=== PATIENT | male | born 1960 | race Hispanic/Latino ===

== ENCOUNTER 2017-03-17 00:23 | Inpatient (IN) | payer SELFPAY ==
--- NOTE | 2017-03-16 11:26 | DIREP ---
PROCEDURE:CHEST 2 VIEWS COMPARISON:[facility], CT, CTA CHEST, 04/17/2016, 01:36 PM. [facility], CR, XRAY CHEST SINGLE VW, 04/17/2016, 10:33 AM. INDICATIONS:PRE OP HEART CATH, ABNORMAL MOISES FINDINGS: LUNGS/PLEURA:No significant pulmonary parenchymal abnormalities or pleural effusion. CARDIAC:Normal cardiac silhouette and normal pulmonary vascularity. MEDIASTINUM:Normal. BONES:Flowing anterior thoracic spondylosis. OTHER:No additional findings. CONCLUSION:No acute cardiopulmonary process or significant change. Dictated by: Johanna Gaines MD on 03/16/2017 at 11:24 AM
[~2017-03-17] VITALS: Ht 172.7 cm; Wt 140.2 kg
[2017-03-17] VITALS (45 sets, daily range): BP systolic 115–244; BP diastolic 47–127
[~2017-03-17 00:23] MED LIST: ASPI-655 PO; ATOR10TA PO; CLOP75TA52 PO; FAMO-75 PO; FLUT9.9S NS; HYDR-922 PO; LISI10TA2 PO; MELO7.5T31 PO; METO25TA2 PO
[2017-03-17] MEDS ORDERED: CALAN ONE (06:40)
[2017-03-17] MEDS ORDERED: HEPARIN ONE (06:40)
[2017-03-17] MEDS ORDERED: NS 1000ML 1,000 ML ONE (06:40)
[2017-03-17] MEDS ORDERED: SUBLIMAZE ONE (06:41)
[2017-03-17] MEDS ORDERED: VERSED ONE (06:41)
[2017-03-17] MEDS ORDERED: XYLOCAINE ONE (06:41)
[2017-03-17] MEDS ORDERED: NITROGLYCERIN 25MG/D5W 250ML 250 ML IV ONE (06:41)
[2017-03-17] MEDS ORDERED: BENADRYL PO ONE (08:00)
[2017-03-17] MEDS ORDERED: NS FLUSH ONE (10:09)
[2017-03-17] MEDS ORDERED: BRILINTA ONE (10:43)
[2017-03-17] MEDS ORDERED: TUMS ONE (10:43)
[2017-03-17] MEDS ORDERED: ASPIRIN ONE (10:43)
[2017-03-17] MEDS ORDERED: SODIUM CHLORIDE 50 ML IV ONE ×3 (10:52→11:01)
[2017-03-17] MEDS ORDERED: ANGIOMAX IV ONE ×3 (10:52→11:00)
[2017-03-17] MEDS ORDERED: AMBIEN PO PRN (11:30)
[2017-03-17] MEDS ORDERED: NORCO 10MG PO PRN (11:30)
[2017-03-17] MEDS ORDERED: NORCO 5MG PO PRN (11:30)
--- NOTE | 2017-03-17 11:35 | NUR ---
PATIENT UP TO UNIT VIA STRETCHER ON PORTABLE AED/TELEMONITOR AND O2 ON AT 2L VIA NASAL CANNULA. PATIENT AWAKES TO VERBAL STIMULI, FOLLOWS COMMANDS. SPEECH CLEAR AND COHERENT. PATIENT ORIENTED X3. PATIENT TRANSFERRED INTO ICU BED WITH 3 PERSON ASSIST. REPORT RECEIVED FROM Quang THOMPSON RN. TR BAND TO RIGHT WRIST. NO BLEEDING OR HEMATOMA NOTED. ANGIOMAX INFUSING AT 49ML/HR AND NS AT 100CC/HR. IV ACCESS NO LONG PATENT. NEW IV ACCESS OBTAINED TO LEFT HAND WITH 20 GA USING ASEPTIC TECH. PATIENT TOLERATED WELL. BAND AID APPLIED TO PREVIOUS ACCESS TO LEFT FA. NO BLEEDING NOTED AT THIS TIME. PATIENT ORIENTED TO ROOM, BED, AND CALL LIGHT. PATIENT AND FAMILY AT BEDSIDE REINSTRUCTED TO NOT PULL OR PUSH WITH RIGHT WRIST AND RO REPORT ANY BLEEDING OR UNUSUAL BRUISING TO NURSE IMMEDIATELY. PATIENT/FAMILY INSTRUCTED ON PURPOSE AND S/E OF ANGIOMAX. PATIENT AND FAMILY VOICED UNDERSTANDING. CALL LIGHT WITHIN EASY REACH.
[2017-03-17] MEDS: ZESTRIL PO SCH (12:30)
--- NOTE | 2017-03-17 12:30 | NUR ---
PATIENT ASSISTED TO BSC. GAIT STEADY. PATIENT C/O CHRONIC KNEE PAIN. NO DISTRESS NOTED. PATIENT HAD LARGE LOOSE BM. PATIENT ASSISTED WITH CLEANSING, AND NEW GOWN AND LINENS CHANGED.
--- NOTE | 2017-03-17 12:54 | CCRH ---
DATE OF SERVICE: 03/17/2017 PROCEDURES PERFORMED: 1. Left heart catheterization via right radial artery access. 2. Selective coronary angiography, left and right. 3. Left ventricular end-diastolic pressure measurement. 4. Left ventriculography. 5. Angioplasty to the in-stent restenosis at the ostial LAD using scoring balloon angioplasty. 6. Angioplasty of the mid circumflex artery, using a drug-eluting stent with primary stenting. 7. Bivalirudin infusion. COMPLICATIONS: None. BLOOD LOSS: Minimal, less than 20 mL. INDICATIONS AND PREOPERATIVE DIAGNOSES: 1. Abnormal stress test dated 03/06/2017 with anterior wall reversible defect and LV dysfunction with EF of 45%. 2. Established history of coronary artery disease requiring angioplasty of a totally occluded LAD on 04/17/2016 with a drug-eluting stent. 3. Progressive symptoms of angina pectoris class 2. 4. Multiple risk factors for coronary artery disease including hypertension, hyperlipidemia, morbid obesity and history of smoking. HISTORY OF PRESENT ILLNESS: The patient is a 56-year-old gentleman who presented with non-ST elevation [place], on April 2016 requiring angioplasty of a totally occluded LAD. Successful angioplasty was performed with excellent results. The patient was on medical treatment. He quit smoking and started following therapeutic lifestyle modifications. Over the last couple of weeks, he developed angina symptoms, class 2. Stress test performed on 03/06/2017 showed anterior wall reversible defect, symptoms progressed. The anterior wall perfusion defect warranted further evaluation of the LAD. DESCRIPTION OF PROCEDURE: The patient was brought into the [facility] today in a fasting condition as an outpatient, he signed proper consent. Risks and benefits were explained. All questions were answered. Lab results were reviewed and allergies verified. Right wrist area was prepped and draped and sterilized, 1% lidocaine was used for local analgesia. A 6-Czech sheath was inserted in the right radial artery without difficulty followed by advancing a 6-Czech sheath in the right radial artery. A 6-Czech Gladwin catheter was utilized to engage the right coronary artery, a JL4 was the catheter of choice to engage the left main for selective left coronary angiography. This was followed by advancing a pigtail catheter into the LV cavity for LVEDP measurement and power injection LV gram in the [place] projection. Careful examination of coronary angiography showed a significant in-stent restenosis at the ostium of the LAD previously deployed stent. There was also a de gustabo lesion in the mid circumflex artery estimated around 70-80% tubular long lesion. At that point, decision was made to discuss the findings with the patient, offered coronary artery bypass procedure, which was declined by the patient and he requested to proceed with angioplasty using percutaneous approach. I have explained all the risks and benefits, cons and pros of the both approaches, the patient agreed on percutaneous intervention and repeating this coronary study in 3 months to reevaluate. At that point, bivalirudin was given for anticoagulation of choice. The patient was in full agreement on the plan and hence an XBU-3 guiding catheter was advanced over the guidewire into the ascending aorta to engage the left main and happened easily without complications. I managed to advance a ChoICE PT wire across the in-stent restenotic lesion in the ostial LAD without difficulty. A run-through wire was advanced into the circumflex artery without difficulty. There were 2 wires in the coronary arteries. Appropriate location was confirmed. The ostial LAD in-stent restenotic lesion which was estimated around 80-85% was treated successfully and reduced to less than 20% using 3.0 x 6 scoring balloon AngioSculpt inflated twice carefully and slowly up to 8 nominal pressures. After angioplasty confirmation of no complication was made. The circumflex artery received angioplasty using 3.0 x 23 Xience Alpine drug-eluting stent deployed carefully over the run-through wire without difficulty to 12 atmospheric pressure and post-dilated to 15 atmospheric pressure with 0% residual stenosis, TIMI3 flow and no complications. The patient reported chest pain upon scoring balloon angioplasty and stent deployment in circumflex artery indicating the clinical significance of both lesions. The patient tolerated the procedure well, had no further complications, chest pain free when he left the medical laboratory technical officer. TR band was applied for hemostasis at the right radial artery access site. I have explained all the findings to the patient in angiographic images and the details of angioplasty. The patient left the Clo[facility] Room Attendant in a stable condition. HEMODYNAMICS: 1. Opening pressure of 122/61, mean of 90. Closing pressure 125/72, mean of 94 mmHg. 2. LVEDP was around 15 mmHg. 3. LV gram showed an ejection fraction of around 55%. There is mild anterior wall hypokinesia. 4. Ascending aorta was normal in size without apparent pathology. 5. A gradient of less than 3 mm across the aortic valve was noted, insignificant. ANGIOGRAPHIC FINDINGS: 1. The right coronary artery is a dominant vessel, normal in size. There is a mild disease proximally around 30%. The rest of the vessel is free of disease, bifurcates distally into a dominant, mildly diseased RPDA and PLV branches. No obstructive lesion in the RCA territory. Multiple small acute marginal branches were noted without obstructive disease. 2. Left main is free of disease vessel. Careful examination showed that the left main distal portion is minimally diseased around 20%. The rest of the left main is free of disease. The vessel is calcified mildly. 3. LAD showed a significant in-stent restenosis at the ostium around 80%. The rest of the stent is patent. There is a moderate disease in the midsegment around 40% nonobstructive. The diagonal branch of the LAD has mild ostial disease. The vessel is tortuous, medium in size, otherwise free of disease except for the ostial lesion. 4. Circumflex artery is a large size vessel, nondominant. The proximal part showed mild disease. The midsegment showed a tubular long lesion around 70-80% in severity concentric. The obtuse marginal branches are medium sized tortuous vessels, free of disease. The circumflex artery is nondominant. INTERVENTION: After contemplating the surgical options for a bypass versus staged angioplasty and reexamination in 3 months, the patient decided to proceed with angioplasty using percutaneous approach. Therefore, bivalirudin was started for anticoagulation. A ChoICE PT wire engaged the LAD without difficulty and a run-through wire across the circumflex artery, both advanced across a guiding catheter of XBU-3 guiding catheter. The ostial LAD lesion was treated with 3.0 x 6 scoring balloon x 2 inflations: The circumflex artery lesion was reduced to 0% residual stenosis using 3.0 x 23 Xience Alpine drug-eluting stent. IMPRESSION: 1. Successful angioplasty of the critical in-stent restenotic lesion and ostial LAD using scoring balloon angioplasty sparing the left main. 2. Successful angioplasty of a significant mid circumflex artery lesion using primary stenting with drug eluting stent. 3. Xbcq-qq-xgnskytw RCA disease, large dominant vessel. 4. The left main itself was spared from disease other than 20% distal lesion. 5. Aqtb-oo-wbgeoolh first diagonal branch disease. 6. Preserved EF around 55% with normal LVEDP around 50 mmHg. 7. The patient reported chest pain upon balloon inflation and stent inflation in both vessels indicating the clinical significance of the lesion. 8. This angioplasty was indicated by multiple risk factors for CAD, ongoing angina symptoms, and history of abnormal stress test showing anterior wall perfusion defect performed on 03/06/2017. RECOMMENDATIONS: 1. The patient will be admitted to the ICU to manage and evaluate for any recoil or any complication related to balloon angioplasty of the proximal ostial LAD. 2. Dual antiplatelet therapy. I will switch the patient to Brilinta at this time. 3. Optimize medical management of TR band. 4. Secondary prevention of coronary artery disease. 5. Check lipid panel and optimize blood pressure control. 6. Therapeutic lifestyle modifications. Aileen Munson MD DR: MIREYA/ciarra JOB# [id number]
--- NOTE | 2017-03-17 12:55 | NUR ---
ANGIOMAX OFF AT THIS TIME.
[2017-03-17] MEDS: NS 1000ML 1,000 ML IV SCH ×2 (13:15→21:02)
--- NOTE | 2017-03-17 13:15 | NUR ---
PAIN PRN HYDROCODONE 5/325MG GIVEN ORDERED FOR PAIN TO JORDANA KNEES. SEE EMAR. PATIENT LEFT LAYING IN BED WITH CALL LIGHT WITHIN EASY REACH. NO OTHER NEEDS VOCIED AT THIS TIME.
--- NOTE | 2017-03-17 15:00 | NUR ---
TR BAND 2ML OF AIR REMOVED NO BLEEDING NOTED, NO HEMATOMA. PULSE 2+, CAP REFILL <3SEC. EXT WARMTH AND COLOR EQUAL BILATERALLY.
--- NOTE | 2017-03-17 15:15 | NUR ---
TR BAND 2ML OF AIR REMOVED NO BLEEDING NOTED, NO HEMATOMA. PULSE 2+, CAP REFILL <3SEC. EXT WARMTH AND COLOR EQUAL BILATERALLY.
--- NOTE | 2017-03-17 15:30 | NUR ---
TR BAND 2ML OF AIR REMOVED NO BLEEDING NOTED, NO HEMATOMA. PULSE 2+, CAP REFILL <3SEC. EXT WARMTH AND COLOR EQUAL BILATERALLY.
--- NOTE | 2017-03-17 15:45 | NUR ---
TR BAND 2ML OF AIR REMOVED NO BLEEDING NOTED, NO HEMATOMA. PULSE 2+, CAP REFILL <3SEC. EXT WARMTH AND COLOR EQUAL BILATERALLY.
--- NOTE | 2017-03-17 16:00 | NUR ---
TR BAND 2ML OF AIR REMOVED NO BLEEDING NOTED, NO HEMATOMA. PULSE 2+, CAP REFILL <3SEC. EXT WARMTH AND COLOR EQUAL BILATERALLY.
--- NOTE | 2017-03-17 16:15 | NUR ---
TR BAND 2ML OF AIR REMOVED NO BLEEDING NOTED, NO HEMATOMA. PULSE 2+, CAP REFILL <3SEC. EXT WARMTH AND COLOR EQUAL BILATERALLY.
--- NOTE | 2017-03-17 16:30 | NUR ---
TR BAND 2ML OF AIR REMOVED NO BLEEDING NOTED, NO HEMATOMA. TR BAND REMOVED, SITE CLEANSED WITH CHLORAPREP AND PAT DRY WITH GAUZE, COVERED WITH GAUZE AND TEGADERM. PULSE 2+, CAP REFILL <3SEC. EXT WARMTH AND COLOR EQUAL BILATERALLY.
--- NOTE | 2017-03-17 18:00 | NUR ---
DRESSING TO RIGHT WRIST C/D/I. PATIENT DENIED ANY NEEDS AT THIS TIME.
--- NOTE | 2017-03-17 18:45 | NUR ---
RECEIVED REPORT, ASSUMED PT CARE
--- NOTE | 2017-03-17 19:00 | NUR ---
PT C/O BACK PAIN NORCO ADMINISTERED PER ORDERS
[2017-03-17] MEDS ORDERED: LIPITOR PO SCH (21:00)
[2017-03-17] MEDS: PEPCID PO SCH (21:02)
[2017-03-17] MEDS: BRILINTA PO SCH (21:02)
[2017-03-17] MEDS ORDERED: BENADRYL PO STA (21:59)
--- NOTE | 2017-03-17 22:30 | NUR ---
PT PLACED ON C-PAP BY SOY RT
[2017-03-18] VITALS (35 sets, daily range): BP systolic 114–176; BP diastolic 40–93
--- NOTE | 2017-03-18 05:00 | NUR ---
LAB AT BEDSIDE
[2017-03-18 05:22] LABS: BASOPHIL % 0.4 % (0.0-0.2); EOSINOPHIL # 0.7 10^3/uL (0.0-0.2); EOSINOPHIL % 9.2 % (0.0-5.0); HEMOGLOBIN 12.1 g/dL (13.9-16.3); LYMPHOCYTES # 1.7 10^3/uL (1.0-4.8); LYMPHOCYTES % 23.8 % (24.0-44.0); MEAN CELL HGB 31.5 pg (26-34); MEAN CELL HGB CONCENTRATION 32.6 g/dL (33-37); MEAN CORP VOLUME 96.6 fL (78-100); MEAN PLATELET VOLUME 9.5 fL (7.8-11.0); MONOCYTES # 0.8 10^3/uL (0.3-0.8); MONOCYTES % 11.5 % (5.0-12.0); NEUTROPHIL # 3.9 10^3/uL (1.8-7.7); NEUTROPHILS % 54.7 % (41.0-85.0); RED CELL DISTRIBUTION WIDTH 13.4 % (11.5-14.5); WHITE BLOOD CELL 7.1 10^3/uL (4.5-11.0)
[2017-03-18 05:41] LABS: CALCIUM 8.8 mg/dL (8.4-10.5); CARBON DIOXIDE 25.5 mmol/L (20.0-32)
--- NOTE | 2017-03-18 06:45 | NUR ---
REPORT RECEIVED REPORT FROM Ubooly.
--- NOTE | 2017-03-18 07:00 | NUR ---
ASSESSMENT ASSESSMENT COMPLETE; SEE FLOW SHEET. DENIES NEEDS AT THIS TIME. BED IS LOW AND LOCKED. SIDE RAILS UP X2. CALL LIGHT IN REACH.
--- NOTE | 2017-03-18 08:08 | NUR ---
ROUNDS DR ORTIZ AT BEDSIDE; ORDERS TO DISCHARGE HOME AND FOLLOW UP IN ONE MONTH.
[2017-03-18] MEDS ORDERED: FLONASE NS SCH (09:00)
[2017-03-18] MEDS ORDERED: PLAVIX PO SCH (09:00)
[2017-03-18] MEDS ORDERED: ASPIRIN EC PO SCH (09:00)
--- NOTE | 2017-03-18 09:09 | NUR ---
IV CATHETER IV CATHETER DISCONTINUED; TIP INTACT; COTTON AND COBAND PLACED OVER SITE; INSTRUCTED TO PLACE BANDAIDE OVER SITE IN 15 MINUTES. VERBALIZED UNDERSTANDING.
--- NOTE | 2017-03-18 09:10 | NUR ---
DISCHARGE DISCHARGE INSTRUCTIONS GIVEN WRITTEN AND VERBALLY. ANSWERED QUESTIONS AND VERBALIZED UNDERSTANDING. INSTRUCTED TO CALL TODAY AND MAKE A FOLLOW UP APPOINTMENT WITH DR ORTIZ. PATIENT REQUEST MEDICATIONS BEFORE LEAVING HOSPITAL.
--- NOTE | 2017-03-18 09:20 | NUR ---
Ice Sculptor Pt seen in room by this nurse. Assessed right radial site. Dressing dry and intact. Instructions given on removal of dressing and care of site at home. Patient verbalized understanding. Denies pain at site. No bleeding, or swelling noted at site. Denies any further questions at this time .
[2017-03-18] MEDS: BRILINTA PO SCH (09:22)
[2017-03-18] MEDS: ZESTRIL PO SCH (09:23)
[2017-03-18] MEDS: PEPCID PO SCH (09:23)
[2017-03-18] MEDS: NS 1000ML 1,000 ML IV SCH (09:24)
--- NOTE | 2017-03-18 09:26 | NUR ---
MEDICATIONS MEDICATIONS PROVIDED; SEE EMAR. INSTRUCTED WOULD NEED TO STAY FOR 30 MINUTES AFTER TAKING MEDICATIONS. VERBALIZED UNDERSTANDING.
[2017-03-18] MEDS ORDERED: TICA90TA PO (09:58)
--- NOTE | 2017-03-18 10:00 | NUR ---
DISMISSED REFUSED WHEELCHAIR; DISMISSED AMBULATORY IN STABLE CONDITION.
--- NOTE | 2017-03-18 10:09 | PRM.DC ---
Discharge Summary Date of Arrival on Unit: Mar 16, 2017 Reason for Visit: Coronary artery disease, peripheral artery disease Patient History: Diabetes mellitus 32 MOTHER 19 CHILD (STEROIDAL DIABETES) FH: coronary artery disease 33 FATHER FH: cystic fibrosis 19 CHILD FH: liver disease 19 CHILD Hypertension 32 MOTHER 33 FATHER No known health problems G8 BROTHER G8 BROTHER G8 SISTER G8 SISTER G8 SISTER 19 CHILD 19 CHILD No Family History of: Alzheimer's disease Asthma Cerebrovascular disorder Chronic obstructive pulmonary disease Congestive heart failure Diabetes insipidus Parkinson's disease History Present Illness: General: Alert, Oriented X3, Cooperative, No acute distress HEENT: Atraumatic Neck: Supple Heart: Regular rate Extremities: No cyanosis Skin: No breakdown Neuro: Normal gait, Normal speech, Normal tone Psych/Mental Status: Mental status NL, Mood NL Scheduled Aspirin (Aspirin Ec), 2 TAB PO DAILY, (Reported) Atorvastatin 10MG (Lipitor 10MG), 1 TAB PO HS, (Reported) Famotidine (Pepcid), 1 TAB PO BID, (Reported) Fluticasone Propionate (Flonase Allergy Relief), 9.9 ML NS DAILY, (Reported) Lisinopril (Lisinopril), 1 TAB PO DAILY, (Reported) Scheduled PRN Hydrocodone Bit/Acetaminophen ([place] 10-325 Tablet), 1 TAB PO BID PRN for PAIN, (Reported) Discontinued Medications Clopidogrel Bisulfate (Plavix), 1 TAB PO DAILY, (Reported) Discontinued Reason: Discontinue Lisinopril (Lisinopril), 1 TAB PO DAILY, (Reported) Discontinued Reason: No Longer Taking Metoprolol Succinate (Toprol Xl), 1 TAB PO DAILY, (Reported) Discontinued Reason: No Longer Taking Sepsis Evaluation @ Discharge Stroke Discharge Summary Discharge on Anti-Thrombotics: Yes Discharge on Antcoagulation Th: Yes Course Blood Pressure Systolic: 161 Blood Pressure Diastolic: 75 Blood Pressure Mean: 92 Notes Patient underwent cardiac catheterization with finding of one critical lesion found at the left main, with decision made to attempt angioplasty, successfully. Also placed stent in distal vessel. Patient admitted to ICU to monitor for high risk complications. Lipid results found to be favorable. Met discharge criteria with no complications - discharged with change from Plavix to Brilinta, continue home medications. Plan Problems: (1) CAD (coronary artery disease) Status: Acute ICD Code: I25.10 - Atherosclerotic heart disease of [place] coronary artery without angina pectoris SNOMED: [id number] (2) Unstable angina Onset Date: Unknown Status: Acute ICD Code: I20.0 - Unstable angina SNOMED: [id number] Assessment The patient is a 56-year-old gentleman who presented with non-ST elevation [place], on April 2016 requiring angioplasty of a totally occluded LAD. Successful angioplasty was performed with excellent results. The patient was on medical treatment. He quit smoking and started following therapeutic lifestyle modifications. Over the last couple of weeks, he developed angina symptoms, class 2. Stress test performed on 03/06/2017 showed anterior wall reversible defect, symptoms progressed. The anterior wall perfusion defect warranted further evaluation of the LAD. INDICATIONS AND PREOPERATIVE DIAGNOSES: 1. Abnormal stress test dated 03/06/2017 with anterior wall reversible defect and LV dysfunction with EF of 45%. 2. Established history of coronary artery disease requiring angioplasty of a totally occluded LAD on 04/17/2016 with a drug-eluting stent. 3. Progressive symptoms of angina pectoris class 2. 4. Multiple risk factors for coronary artery disease including hypertension, hyperlipidemia, morbid obesity and history of smoking. Patient taken to cardiac catheterization for evaluation of coronary arteries. Discharge Date: Mar 18, 2017 Dicharge DX: Coronary artery disease, high risk lesion with angioplasty Discharge Disposition: Stable Plan PROCEDURES PERFORMED: 1. Left heart catheterization via right radial artery access. 2. Selective coronary angiography, left and right. 3. Left ventricular end-diastolic pressure measurement. 4. Left ventriculography. 5. Angioplasty to the in-stent restenosis at the ostial LAD using scoring balloon angioplasty. 6. Angioplasty of the mid circumflex artery, using a drug-eluting stent with primary stenting. IMPRESSION: 1. Successful angioplasty of the critical in-stent restenotic lesion and ostial LAD using scoring balloon angioplasty sparing the left main. 2. Successful angioplasty of a significant mid circumflex artery lesion using primary stenting with drug eluting stent. 3. Soto-eh-rslchcvj RCA disease, large dominant vessel. 4. The left main itself was spared from disease other than 20% distal lesion. 5. Djdn-bm-bpsotoyq first diagonal branch disease. 6. Preserved EF around 55% with normal LVEDP around 50 mmHg. 7. The patient reported chest pain upon balloon inflation and stent inflation in both vessels indicating the clinical significance of the lesion. 8. This angioplasty was indicated by multiple risk factors for CAD, ongoing angina symptoms, and history of abnormal stress test showing anterior wall perfusion defect performed on 03/06/2017. RECOMMENDATIONS: 1. The patient was admitted to the ICU to manage and evaluate for any complication related to balloon angioplasty of the proximal ostial LAD. 2. Dual antiplatelet therapy. Change the patient to Brilinta at this time. 3. Optimize medical management. 4. Secondary prevention of coronary artery disease. 5. Check lipid panel and optimize blood pressure control. 6. Therapeutic lifestyle modifications including with weight loss, sleep apnea , etc. 7. Return for follow up in one month - receive DOT forms at that time. Problem Qualifiers (1) CAD (coronary artery disease): Coronary Disease-Associated Artery/Lesion type: [place] artery [place] vs. transplanted heart: [place] heart Associated angina: with unstable angina Qualified Codes: I25.110 - Atherosclerotic heart disease of [place] coronary artery with unstable angina pectoris BERKLEY BUNDY NP, NP Mar 18, 2017 10:09
== END 2017-03-18 12:10 | disposition home or self-care (01) | DRG 247 ==
LOC: SDC 00:23 → OBSVTOIN 10:40 → ICU 10:40
PROVIDERS: ADMIT Internal Medicine; ATTEND Internal Medicine
PROC: 4A023N7 Measurement of Cardiac Sampling and Pressure, Left Heart, Percutaneous Approach (ICD-10-PCS; principal; 2017-03-17)
PROC: 027034Z Dilation of Coronary Artery, One Artery with Drug-eluting Intraluminal Device, Percutaneous Approach (ICD-10-PCS; 2017-03-17)
PROC: 02703ZZ Dilation of Coronary Artery, One Artery, Percutaneous Approach (ICD-10-PCS; 2017-03-17)
PROC: B2151ZZ Fluoroscopy of Left Heart using Low Osmolar Contrast (ICD-10-PCS; 2017-03-17)
PROC: B2111ZZ Fluoroscopy of Multiple Coronary Arteries using Low Osmolar Contrast (ICD-10-PCS; 2017-03-17)
PROC: 3E033PZ Introduction of Platelet Inhibitor into Peripheral Vein, Percutaneous Approach (ICD-10-PCS; 2017-03-17)
PROC: 5A09357 Assistance with Respiratory Ventilation, Less than 24 Consecutive Hours, Continuous Positive Airway Pressure (ICD-10-PCS; 2017-03-17)
DX: T82.855A Stenosis of coronary artery stent, initial encounter (principal); Z68.41 Body mass index [BMI] 40.0-44.9, adult; I10 Essential (primary) hypertension; I25.110 Atherosclerotic heart disease of native coronary artery with unstable angina pectoris; E78.5 Hyperlipidemia, unspecified; E66.01 Morbid (severe) obesity due to excess calories; M17.9 Osteoarthritis of knee, unspecified; Y83.1 Surgical operation with implant of artificial internal device as the cause of abnormal reaction of the patient, or of later complication, without mention of misadventure at the time of the procedure; Y92.89 Other specified places as the place of occurrence of the external cause; I25.2 Old myocardial infarction; Z87.891 Personal history of nicotine dependence; Z82.49 Family history of ischemic heart disease and other diseases of the circulatory system; Z83.3 Family history of diabetes mellitus; Z84.89 Family history of other specified conditions; Z83.79 Family history of other diseases of the digestive system
CPT/HCPCS: 36415; 71020; 80048; 80061; 83036; 85025; 85610; 92920; 93005; 93458; 94660; 99152; 99153; C1769; C1887; C1894; C9600; J0583; J1644; J2250; J3010; J3490; J7030; Q0163; Q9967; C1725; C1874